=== PATIENT | female | born 1995 | race Hispanic/Latino ===

== ENCOUNTER 2019-08-10 23:10 | Emergency (ER) | payer OTHER ==
[2019-08-10] MEDS ORDERED: ACETAMINOPHEN EXTRA STRENGTH 500 MG TABLET ONE (23:48)
[2019-08-10] MEDS ORDERED: ONDANSETRON ODT 4 MG TAB ONE (23:49)
== END 2019-08-11 01:17 | disposition home or self-care (01) ==
LOC: EDH 23:10
DX: S06.0X0A Concussion without loss of consciousness, initial encounter (principal); R07.89 Other chest pain; Z90.49 Acquired absence of other specified parts of digestive tract; V89.2XXA Person injured in unspecified motor-vehicle accident, traffic, initial encounter; Y93.89 Activity, other specified; Y92.89 Other specified places as the place of occurrence of the external cause; Y99.8 Other external cause status
CPT/HCPCS: 70450; 71045; 81025; 93005

== ENCOUNTER 2020-02-18 18:03 | Emergency (ER) | payer MEDICAID ==
[2020-02-18] MEDS ORDERED: POTASSIUM CHLORIDE 20 MEQ ERTAB PO ONE (21:01)
== END 2020-02-18 21:08 ==
LOC: EDH 18:03 → EEVIPCON 18:03 → EDH 21:08
DX: O20.0 Threatened abortion (principal); Z3A.15 15 weeks gestation of pregnancy; Z72.0 Tobacco use